=== PATIENT | female | born 1995 | race Caucasian/White ===

== ENCOUNTER 2023-06-05 15:55 | Emergency (ER) | payer OTHER, SELFPAY ==
[2023-06-05 15:59] VITALS: BP 139/93; PULSE 135; RESP 18; TEMP 36.4; O2SAT 100; BMI 21.9
[2023-06-05 16:26] VITALS: PULSE 121; RESP 15
--- NOTE | 2023-06-05 16:34 | ECG_ITS ---
[facility] Test Date: 2023-06-05 Pat Name: GILSE HOLLAND Department: Room: - Gender: Female Right Of Way Agent: : 1995 Requested By: Order Number: [id number] Reading MD: BOWEN KINGSTON Measurements Intervals [place] Rate: 114 P: 62 LA: 164 QRS: 75 QRSD: 76 T: 50 QT: 318 QTc: 386 Interpretive Statements 1120 Sinus tachycardia 6220 Possible left atrial enlargement 9140 abnormal rhythm ECG No previous ECG available for comparison Electronically Signed On 06-06-2023 6:54:11 EST by BOWEN KINGSTON
--- NOTE | 2023-06-05 16:40 | ED.GENADUL1 ---
HPI - General Adult General Chief complaint: Psychiatric Symptoms Stated complaint: ALTERED MENTAL STATUS Time Seen by Provider: 06/05/23 16:01 Source: patient Mode of arrival: walk-in History of Present Illness HPI narrative: Patient is a 27-year-old female who is presenting to the Emergency Room with a chief complaint of feeling very manic, and wants to voluntarily be admitted to the hospital before symptoms get worse. Patient is very pleasant to talk to. Patient is very in tune with her symptoms. 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 Patient has a history of bipolar 1. Patient takes oxcarbamazepine 150 mg 2 times a day, risperidone 1 mg once a day, Focalin 30 mg once a day. These are new or medications she's been taking recently. In the past patient has been on Depakote and it did not help. Lamictal in the past has not helped. The patient is currently on these 3 medications. Patient is currently involved with [facility] counsel. Patient is from [place]. Patient did not know there is a hospital in [place]; patient came to [facility] for help. Patient has never spoken to mental health [facility]'s counseling previously. Last admission was in [place] 5 years ago. Patient is currently working as a counselor. Patient is very concerned that her current emery will worsen and she is coming to the Emergency Room for help at a time. Patient did not speak to her counselor today, she sent her in email and is recommended by the counselor that patient come to the Emergency Room for help. Patient has not slept in 3 days, patient's very irritable, patient has rapid thoughts and speech. Patient says the next that his auditory hallucinations, she does not have them currently but she believes they will come tonight probably. Patient is very in tune with her symptoms, she states her awareness is secondary to her job as a counselor and also her training that she is currently going through as well. Patient lives at home with her mother. Mother has not been home, patient's sister and 2 kids admitted and recently. This has nothing to contribute to patient's symptoms at this time. Patient is compliant with her medication. Patient has a histtory of Crohn's. Patient has had infusions but is not on a daily medication. Patient did take Risperdal last night and it did not help with her sleep which it normally does. Patient is recommended not to take melatonin with her Crohn's and it doesn't help her sleep anyway. Patient's insurance is medicated. Patient is a voluntary admission. Patient uses no illicit drugs, no alcohol. Patient laughs when I asked about alcohol because she knows this no good for Crohn's and she would not take that. No smoking cigarettes. Patient just finished her menses yesterday. Patient not concerned about . Patient has a history of cutting herself as well for suicide attempts, she has done no cutting today, patient does not want herself. . All systems are negative except as noted/marked. All systems reviewed and otherwise negative. . Nurses note and vital signs reviewed and patient is not hypoxic. General: The patient appears Mild distress secondary to emery. Patient is resting comfortably on cart. Patient is not toxic, lethargic, or listless Skin: Warm, dry, no pallor noted. There is no rash noted. No petechiae, purpura. Facial acne, no secondary signs of infection. No signs acute cutting. Old scars to forearms from previous cutting. Head: Normocephalic, atraumatic Eye: Normal conjunctiva, no drainage, EOMI. PERRL Ears, Nose, Mouth, and Throat: oral mucosa is moist. Nares patent. Mouth without vesicles. Cardiovascular: Regular Rate and Rhythm, no murmur, gallop, rub Respiratory: Patient is in no distress, no accessory muscle use, lungs are clear to auscultation, no wheezing, rales or rhonchi Back: non-tender, no CVA tenderness bilaterally to percussion. No CT LS midline pain GI: soft, no tenderness to palpation, no masses appreciated. No rebound, guarding, or rigidity noted. No flank pain bilateral, No distention Musculoskeletal: Patient has full range of motion of all of the extremities, no motor, sensory, or focal neurological deficits Neurological: A&O x3, normal speech Psychiatric: Cooperative, Admittedly manic, no suicidal or homicidal, very directable, excellent eye contact, somewhat rapid speech Related Data Home Medications Medication Instructions Recorded Confirmed aripiprazole 10 mg tablet mg 06/05/23 dexmethylphenidate 30 mg mg PO 06/05/23 capsule,extended release [id number] oxcarbazepine 150 mg tablet mg 06/05/23 risperidone 1 mg tablet mg 06/05/23 testosterone cypionate 200 mg/mL mg 06/05/23 intramuscular oil Allergies Allergy/AdvReac Type Severity Reaction Status Date / Time No Known Drug Allergies Allergy Verified 06/05/23 15:59 Exam Constitutional Vital Signs, click to edit/add: Last Vital Signs Temp 97.5 F L 06/05/23 15:59 Pulse 121 H 06/05/23 16:26 Resp 15 06/05/23 16:26 BP 99/71 06/05/23 17:32 Pulse Ox 100 06/05/23 15:59 O2 Del Method Room Air 06/05/23 15:59 Course Vital Signs Vital signs: Vital Signs Temperature 97.5 F L 06/05/23 15:59 Pulse Rate 135 H 06/05/23 15:59 Respiratory Rate 18 06/05/23 15:59 Blood Pressure 139/93 H 06/05/23 15:59 Pulse Oximetry 100 06/05/23 15:59 Oxygen Delivery Method Room Air 06/05/23 15:59 Temperature 97.5 F L 06/05/23 15:59 Pulse Rate 121 H 06/05/23 16:26 Respiratory Rate 15 06/05/23 16:26 Blood Pressure 99/71 06/05/23 17:32 Pulse Oximetry 100 06/05/23 15:59 Oxygen Delivery Method Room Air 06/05/23 15:59 Medical Decision Making [facility] Narrative Medical decision making narrative: 1630 Patient is a voluntary admission for emery secondary to bipolar 1. Patient is not suicidal or homicidal. Patient does not use alcohol, drugs or smoking products/tobacco products. Patient is not slept for 3 days. Patient has rapid thoughts, somewhat rapid speech. Patient's very pleasant to take care of, patient is very aware of her symptoms. Patient is irritable, hasn't slept in 3 days, and states that she is worried the emery will get worse. She has not had any auditory hallucinations yet, but this is happening in the past with emery episodes of her bipolar. Last time patient admitted to the hospital was 5 years ago in [place]. Patient sees [place] counseling was recommended to come to the Emergency Room for help. Patient wants to be admitted to the hospital. Patient is having medical clearance, patient will speak to [facility] in the next 1-2 hours and had finished talking to another patient. Patient is aware this. Patient is drinking orange Gatorade, patient has her phone and her work phone. No other acute complaints this time,, patient thankful for help. [address] [facility] is speaking to the patient at this time. Patient's potassium of 3.3, she had potassium bicarbonate ordered to drink. Patient was offered dinner, she did not want dinner. Patient is drinking orange Gatorade. Patient's care is transitioned to Dr. Jones for final disposition and transfer. Patient is a voluntary admission. Patient a very pleasant take care of, patient wants to be admitted for bipolar one emery. Critical care time 32 minutes exclusive from separate billable procedures that were performed. The following was considered in the determination of critical care but not limited to the level of medical decision making, intensive cardiac and/or respiratory monitoring, frequent vital sign monitoring, evaluation of laboratory studies, evaluation of radiographic studies, oxygen monitoring, and constant monitoring and speaking to family at bedside Lab Data Lab results reviewed: Yes I reviewed the patient's lab results Labs: Lab Results 06/05/23 06/05/23 Range/Units 16:52 17:33 WBC 5.4 (4.0-11.0) 10^3/uL RBC 4.38 (4.20-5.40) 10^6/uL Hgb 10.8 L (12.0-16.0) g/dL Hct 34.4 L (36.0-48.0) % MCV 78.5 L (81.0-99.0) fL MCH 24.7 L (26.7-34.0) pg MCHC 31.4 (29.9-35.2) g/dL RDW 13.3 (11.0-15.0) % Plt Count 258 (150-450) 10^3/uL MPV 10.2 (9.5-13.5) fL Neut % (Auto) 70.9 (43.0-75.0) % Lymph % (Auto) 21.2 (20.5-60.0) % [place] % (Auto) 6.4 (1.7-12.0) % Eos % (Auto) 0.6 L (0.9-7.0) % Baso % (Auto) 0.7 (0.2-2.0) % Neut # (Auto) 3.9 (1.4-6.5) 10^3/uL Lymph # (Auto) 1.2 (1.2-3.8) 10^3/uL [place] # (Auto) 0.4 (0.3-0.8) 10^3/uL Eos # (Auto) 0.0 (0.0-0.7) 10^3/uL Baso # (Auto) 0.0 (0.0-0.1) 10^3/uL Abs Immat Gran (auto) 0.01 (0.00-0.03) 10^3/uL Imm/Tot Granulo (auto) 0.2 (0.0-0.5) % PT 11.3 (9.0-11.6) sec INR 1.07 Sodium 141 (136-145) mmol/L Potassium 3.3 L (3.5-5.1) mmol/L Chloride 103 (98-107) mmol/L Carbon Dioxide 26.2 (21.0-32.0) mmol/L Anion Gap 15.1 BUN 7.0 (7.0-18.0) mg/dL Creatinine 0.78 (0.55-1.02) mg/dL Est GFR ( Amer) >60 (>=60) Est GFR (Non-Af Amer) >60 (>=60) BUN/Creatinine Ratio 9.0 Glucose 126 H (74-106) mg/dL Calcium 8.7 (8.5-10.1) mg/dL Total Bilirubin 0.2 (0.2-1.0) mg/dL AST 12 L (15-37) U/L ALT 17 (14-59) U/L Alkaline Phosphatase 114 (46-116) U/L Total Protein 8.0 (6.4-8.2) g/dL Albumin 3.1 L (3.4-5.0) g/dL Globulin 4.9 g/dL Albumin/Globulin Ratio 0.6 Salicylates <2.8 (<=19.9) mg/dL Urine Opiates Screen Negative (NEGATIVE) Ur Buprenorphine Scrn Negative (NEGATIVE) Ur Oxycodone Screen Negative (NEGATIVE) Urine Methadone Screen Negative (NEGATIVE) Acetaminophen <2.0 L (10.0-30.0) ug/mL Ur Barbiturates Screen Negative (NEGATIVE) U Tricyclic Antidepress Negative (NEGATIVE) Ur Phencyclidine Scrn Negative (NEGATIVE) Ur Amphetamines Screen Negative (NEGATIVE) U Methamphetamines Scrn Negative (NEGATIVE) U Benzodiazepines Scrn Negative (NEGATIVE) Urine Cocaine Screen Negative (NEGATIVE) U Cannabinoids Screen Negative (NEGATIVE) Ethanol Quant <3 mg/dL ECG Data Attestation: I personally reviewed and interpreted this ECG as follows: (EKG interpretation. Sinus tachycardia at 114. Normal axis deviation. No acute ST elevation, no acute ectopy. QTC of 386. Patient's heart rate is improving, admittedly very anxious and feels very manic. QRS of 76.) Discharge Plan Discharge Patient Disposition: Still a Patient
[2023-06-05 17:00] LABS: Basophils Percent Auto 0.7 % (0.2-2.0); Eosinophils Percent Auto 0.6 % (0.9-7.0); Hematocrit 34.4 % (36.0-48.0); Hemoglobin 10.8 g/dL (12.0-16.0); Immature Granulocytes Abs Auto 0.01 10^3/uL (0.00-0.03); Immature Granulocytes Pct Auto 0.2 % (0.0-0.5); Lymphocytes Absolute Auto 1.2 10^3/uL (1.2-3.8); Lymphocytes Percent Auto 21.2 % (20.5-60.0); Mean Corpuscular HGB Conc 31.4 g/dL (29.9-35.2); Mean Corpuscular Hemoglobin 24.7 pg (26.7-34.0); Mean Corpuscular Volume 78.5 fL (81.0-99.0); Mean Platelet Volume 10.2 fL (9.5-13.5); Monocytes Absolute Auto 0.4 10^3/uL (0.3-0.8); Monocytes Percent Auto 6.4 % (1.7-12.0); Neutrophils Absolute Auto 3.9 10^3/uL (1.4-6.5); Neutrophils Percent Auto 70.9 % (43.0-75.0); Platelet Count 258 10^3/uL (150-450); Red Blood Count 4.38 10^6/uL (4.20-5.40); Red Cell Distribution Width 13.3 % (11.0-15.0); White Blood Count 5.4 10^3/uL (4.0-11.0)
[2023-06-05 17:32] VITALS: BP 99/71
[2023-06-05 17:33] LABS: Salicylate <2.8 mg/dL (<=19.9)
[2023-06-05 17:37] LABS: Alanine Aminotransferase 17 U/L (14-59); Albumin Globulin Ratio 0.6; Albumin Level 3.1 g/dL (3.4-5.0); Alkaline Phosphatase 114 U/L (46-116); Anion Gap 15.1; Aspartate Amino Transferase 12 U/L (15-37); Bilirubin Total 0.2 mg/dL (0.2-1.0); Calcium 8.7 mg/dL (8.5-10.1); Carbon Dioxide 26.2 mmol/L (21.0-32.0); Chloride 103 mmol/L (98-107); Estimated GFR (African America >60 (>=60); Estimated GFR (Non-African Ame >60 (>=60); Ethanol <3 mg/dL; Globulin 4.9 g/dL; Glucose 126 mg/dL (74-106); Potassium 3.3 mmol/L (3.5-5.1); Sodium 141 mmol/L (136-145)
[2023-06-05 17:44] LABS: Acetaminophen <2.0 ug/mL (10.0-30.0)
[2023-06-05 17:54] LABS: Amphetamine Screen Urine NEGATIVE (NEGATIVE); Barbiturates Screen Urine NEGATIVE (NEGATIVE); Benzodiazepines Screen Urine NEGATIVE (NEGATIVE); Buprenorphine Screen Urine NEGATIVE (NEGATIVE); Cannabinoid Screen Urine NEGATIVE (NEGATIVE); Cocaine Screen Urine NEGATIVE (NEGATIVE); Methadone Screen Urine NEGATIVE (NEGATIVE); Methamphetamines Screen Urine NEGATIVE (NEGATIVE); Opiate Screen Urine NEGATIVE (NEGATIVE); Oxycodone Screen Urine NEGATIVE (NEGATIVE); Phencyclidine Screen Urine NEGATIVE (NEGATIVE); Tricyclic Antidepressant Urine NEGATIVE (NEGATIVE)
[2023-06-05 18:12] LABS: INR 1.07; Prothrombin Time 11.3 sec (9.0-11.6)
[2023-06-05] MEDS: POTASSIUM BICARBONATE/CIT 25 MEQ TABLET EFF 50 MEQ PO (19:39)
[2023-06-05 19:51] VITALS: BP 105/75; PULSE 71; RESP 16; O2SAT 100
== END 2023-06-05 20:00 ==
PROVIDERS: Emergency Provider Emergency Medicine
DX: F31.9 Bipolar disorder, unspecified (principal); K50.90 Crohn's disease, unspecified, without complications; Z79.899 Other long term (current) drug therapy
CPT/HCPCS: 36415; 80053; 80179; 80307; 80320; 80329; 85025; 85610; 93005; 99285